=== PATIENT | female | born 1960 | race Caucasian/White ===

== ENCOUNTER 2016-08-22 05:50 | Day surgery (SDC) | payer BC ==
--- NOTE | ~2016-08-22 | EGD ---
EGD REPORT [facility] [address] [address] NAME: MARI AUGUSTE : 60 STATUS : [facility] [place] PAT#: [id number] AGE: 56 ADM/REG DATE : 08/22/16 MR#: [id number] REPORT SERV DATE: 08/22/16 DICTATED BY: SYED FLAHERTY DATE: 08/22/16 REPORT STATUS : Draft TRANSCRIBED BY: [facility] DATE: 08/22/16 [facility]oscopy Center Patient Name: Mari Auguste Date of : 1960 Attending MD: SYDE FLAHERTY MD Procedure Date No Time: 08/22/2016 Procedure: Upper GI endoscopy Indications: Abdominal pain in the right upper quadrant, Dysphagia, Heartburn, Melena, Weight loss, NSAID exposure Referring MD: ONEYDA SONI Medicines: Propofol per Anesthesia Complications: No immediate complications. Estimated blood loss: Minimal. Procedure: Pre-Anesthesia Assessment: - After reviewing the risks and benefits, the patient was deemed in satisfactory condition to undergo the procedure. - Prior to the procedure, a History and Physical was performed, and patient medications and allergies were reviewed. The patient's tolerance of previous anesthesia was also reviewed. The risks and benefits of the procedure and the sedation options and risks were discussed with the patient. All questions were answered, and informed consent was obtained. Prior Anticoagulants: The patient has taken no previous anticoagulant or antiplatelet agents. ASA Grade Assessment: II - A patient with mild systemic disease. After reviewing the risks and benefits, the patient was deemed in satisfactory condition to undergo the procedure. After obtaining informed consent, the endoscope was passed under direct vision. Throughout the procedure, the patient's blood pressure, pulse, and oxygen saturations were monitored continuously. The GIF [id number] was introduced through the mouth, and advanced to the third part of duodenum. The upper GI endoscopy was accomplished without difficulty. The patient tolerated the procedure well. Findings: Savary-Lea Grade IV (Grade I-III, complicated by ulcer(s), stricture(s), or shortening) esophagitis with no bleeding was found. The Z-line was irregular. Biopsies were taken with a cold forceps for histology. Estimated blood loss was minimal. A benign-appearing, intrinsic moderate (circumferential scarring or stenosis; an endoscope may pass) stenosis was found and was traversed. A EGD REPORT [address] [address] NAME: MARI AUGUSTE : [birth year] STATUS : [facility]#: [id number] AGE: 56 ADM/REG DATE : 08/22/16 MR#: [id number] REPORT SERV DATE: 08/22/16 DICTATED BY: SYED FLAHERTY DATE: 08/22/16 REPORT STATUS : Draft TRANSCRIBED BY: [employer] DATE: 08/22/16 guidewire was placed and the scope was withdrawn. Dilation was performed with a Savary dilator with moderate resistance at 48 Fr. Repeat endoscopic examination after dilation revealed a mucosal tear but no transmural injury. Estimated blood loss was minimal. A 2 cm hiatus hernia was present. The examined duodenum was normal. Impression: - Savary-Lea Grade IV reflux esophagitis. - Z-line irregular,. Biopsied. - Benign-appearing esophageal stricture. Dilated with mucosal tear. - Hiatus hernia. - Normal examined duodenum. Recommendation: - Discharge patient to home (ambulatory). - Full liquid diet today, soft diet tomorrow, and then advance diet Monday as tolerated. - Discontinue ibuprofen, naproxen, and other NSAID medications. - Begin Prilosec (omeprazole) 40 mg DAILY before breakfast. - Continue Zantac (ranitidine) 150 mg at bedtime until completed. - Repeat esophageal dilation as needed. - Patient has a contact number available for emergencies. The signs and symptoms of potential delayed complications were discussed with the patient. Return to normal activities tomorrow. Written discharge instructions were provided to the patient. Procedure Code(s): --- Professional --- 79534, Esophagogastroduodenoscopy, flexible, transoral; with insertion of guide wire followed by passage of dilator(s) through esophagus over guide wire 06702, Esophagogastroduodenoscopy, flexible, transoral; with biopsy, single or multiple Diagnosis Code(s): --- Professional --- K21.0, Gastro-esophageal reflux disease with esophagitis K22.8, Other specified diseases of esophagus K22.2, Esophageal obstruction K44.9, Diaphragmatic hernia without obstruction or gangrene R10.11, Right upper quadrant pain R13.10, Dysphagia, unspecified R12, Heartburn K92.1, Melena EGD REPORT [facility] [address] [facility]. [address] NAME: MARI AUGUSTE : 60 STATUS : [facility] [place] PAT#: [id number] AGE: 56 ADM/REG DATE : 08/22/16 MR#: [id number] REPORT SERV DATE: 08/22/16 DICTATED BY: SYED FLAHERTY DATE: 08/22/16 REPORT STATUS : Draft TRANSCRIBED BY: [employer] DATE: 08/22/16 R63.4, Abnormal weight loss CPT copyright 2013 [employer]. All rights reserved. The codes documented in this report are preliminary and upon avionics systems engineer review may be revised to meet current compliance requirements. SYED FLAHERTY MD 08/22/2016 7:58 AM This report has been signed electronically. Number of Addenda: 0 Note Initiated On: 08/22/2016 6:50 AM Scope Withdrawal Time 0 hours 0 minutes 0 seconds [address] [place] [address]
[~2016-08-22 05:50] MED LIST: ACET500CAP PO; COZAAR100 MG PO; ESTRATEST PO; IBU-200200 MG PO; PREMPRO1 TA2 PO; ZANTAC150 MG PO
== END 2016-08-22 23:59 | disposition home or self-care (01) ==
LOC: DMU 05:50
PROVIDERS: Internal Medicine Gastroenterology
PROC: 0D747ZZ Dilation of Esophagogastric Junction, Via Natural or Artificial Opening (ICD-10-PCS; principal; 2016-08-22 07:30)
DX: K21.0 Gastro-esophageal reflux disease with esophagitis (principal); K22.8 Other specified diseases of esophagus; K22.2 Esophageal obstruction; K44.9 Diaphragmatic hernia without obstruction or gangrene; R10.11 Right upper quadrant pain; R13.10 Dysphagia, unspecified; R12 Heartburn; K92.1 Melena; R63.4 Abnormal weight loss; I10 Essential (primary) hypertension; E66.9 Obesity, unspecified
CPT/HCPCS: 88305